=== PATIENT | male | born 1995 | race Caucasian/White ===

== ENCOUNTER 2019-01-05 22:58 | Emergency (ER) | payer SELFPAY ==
[~2019-01-05] VITALS: Ht 165.1 cm; Wt 88.1 kg
[2019-01-05 23:02] VITALS: BP 128/82
--- NOTE | 2019-01-05 23:09 | NUR ---
PT AMBULATED TO BED 03 WITH STEADY GAIT.
--- NOTE | 2019-01-05 23:15 | NUR ---
EMT PERFORMING EKG AT BEDSIDE.
--- NOTE | 2019-01-05 23:24 | NUR ---
PHLEB DRAWING LABS AT BEDSIDE.
[2019-01-05 23:34] LABS: BASOPHILS % (AUTO) 0.6 % (0.0-2.0); EOSINOPHILS # (AUTO) 0.1 K/uL (0-0.4); EOSINOPHILS % (AUTO) 1.7 % (0.0-4.0); HEMATOCRIT 44.6 % (36-52); HEMOGLOBIN 15.3 g/dL (12.0-18.0); LYMPHOCYTES # (AUTO) 3.2 K/uL (2.0-11.5); LYMPHOCYTES % (AUTO) 46.5 % (20.5-51.1); MEAN CORPUSCULAR HEMOGLOBIN 30 pg (27-31); MEAN CORPUSCULAR HGB CONC 34 g/dL (33-37); MEAN CORPUSCULAR VOLUME 87.9 fL (80-94); MONOCYTES # (AUTO) 0.6 K/uL (0.8-1.0); MONOCYTES % (AUTO) 9.4 % (1.7-9.3); NEUTROPHILS # (AUTO) 2.9 K/uL (1.8-7.7); NEUTROPHILS % (AUTO) 41.8 % (42.2-75.2); PLATELET COUNT (AUTO) 224 K/uL (140-450); RED BLOOD CELL COUNT(AUTO) 5.08 MIL/uL (4.20-6.10); RED CELL DISTRIBUTION WIDTH 12.9 % (11.6-13.7); WHITE BLOOD COUNT (AUTO) 6.9 K/uL (4.8-10.8)
[2019-01-05 23:52] LABS: ALBUMIN 3.8 g/dL (3.4-5.0); ANION GAP 13.6 (8-16); CARBON DIOXIDE 24.7 mmol/L (21-32); CREATININE 0.8 mg/dL (0.7-1.3); POTASSIUM 3.3 mmol/L (3.5-5.1); TOTAL BILIRUBIN 0.3 mg/dL (0.0-1.0)
[2019-01-06 01:01] VITALS: BP 112/79
--- NOTE | 2019-01-06 01:01 | NUR ---
Patient discharged with v/s stable. Written and verbal after care instructions given and explained. Patient verbalized understanding. Ambulatory with steady gait. All questions addressed prior to discharge. Advised to follow up with PMD.
== END 2019-01-06 01:01 | disposition home or self-care (01) ==
LOC: MED 22:58
DX: R07.9 Chest pain, unspecified (principal)
CPT/HCPCS: 36415; 71045; 80053; 83690; 84484; 85025; 99284; Q0092

== ENCOUNTER 2020-01-30 14:14 | Emergency (ER) | payer SELFPAY ==
[~2020-01-30] VITALS: Ht 162.6 cm; Wt 63.5 kg
[2020-01-30 14:21] VITALS: BP 128/69
--- NOTE | 2020-01-30 14:21 | NUR ---
PATIENT AMBULATED TO BED 4.
[2020-01-30] MEDS ORDERED: ALUMINUM HYD/MAG/SIMETHICONE 30 ML UDC ONE (14:30)
[2020-01-30] MEDS ORDERED: DICYCLOMINE HCL LIQUID 10 MG/5 ML UDC ONE (14:30)
[2020-01-30] MEDS ORDERED: DICYCLOMINE HCL LIQUID 20 MG, ALUMINUM HYD/MAG/SIMETHICONE 30 ML, LIDOCAINE VISCOUS 2% ... PO ONE ×3 (14:30)
[2020-01-30] MEDS ORDERED: LIDOCAINE VISCOUS 2% 20 ML UDC ONE (14:30)
--- NOTE | 2020-01-30 14:30 | NUR ---
24 YEAR OLD MALE COMPLAINS OF EPIGASTRIC PAIN AFTER DRINKING ALCOHOL PRIOR TO ARRIVAL. PT DENIES NAUSEA, VOMITTING, DIARRHEA. PT HAS NO OTHER COMPLAINTS AT THIS TIME. PT AOX4, BREATHING EVEN AND UNLABORED, SKIN WARM AND DRY. BED IN LOWEST POSITION, LOCKED, BED RAIL UPX1. PMH - DENIES ALLERGIES - NKA
--- NOTE | 2020-01-30 14:54 | NUR ---
PT STATES STILL HAS SOME PAIN, ERMD MADE AWARE
[2020-01-30] MEDS ORDERED: KETOROLAC 60 MG/2 ML VIAL IM ONE (14:55)
--- NOTE | 2020-01-30 15:18 | NUR ---
Patient discharged with v/s stable. Written and verbal after care instructions about abdominal pain given and explained. Patient alert, oriented and verbalized understanding of instructions. Ambulatory with steady gait. All questions addressed prior to discharge. ID band removed. Patient advised to follow up with PMD. Rx of motrin and prilosec given. Patient educated on indication of medication including possible reaction and side effects. Opportunity to ask questions provided and answered.
[2020-01-30 15:19] VITALS: BP 132/80
== END 2020-01-30 15:18 | disposition home or self-care (01) ==
LOC: MED 14:14
DX: R10.13 Epigastric pain (principal)
CPT/HCPCS: 96372; 99283; J1885

== ENCOUNTER 2024-01-04 15:55 | Emergency (ER) | payer MEDICAID ==
[~2024-01-04] VITALS: Ht 162.6 cm; Wt 72.6 kg
[2024-01-04 16:04] VITALS: BP 132/75; PULSE 70; RESP 20; TEMP 98.7; O2SAT 97
[2024-01-04] MEDS ORDERED: ACET500T99 PO (17:46)
[2024-01-04] MEDS ORDERED: IBUP-2213 PO (17:46)
[2024-01-04 17:56] VITALS: BP 132/75; PULSE 70; RESP 20; TEMP 98.7; O2SAT 97
== END 2024-01-04 17:56 | disposition home or self-care (01) ==
LOC: MED 15:55
DX: S71.131A Puncture wound without foreign body, right thigh, initial encounter (principal); Z79.899 Other long term (current) drug therapy; W29.4XXA Contact with nail gun, initial encounter; Y92.89 Other specified places as the place of occurrence of the external cause; Y93.89 Activity, other specified; Y99.8 Other external cause status
CPT/HCPCS: 73552; 90471; 90715; 99283; Q0092